=== PATIENT | female | born 2005 | race Caucasian/White ===

== ENCOUNTER 2024-08-07 19:50 | Emergency (ER) | payer MEDICAID ==
[~2024-08-07] VITALS: Ht 152.4 cm; Wt 56.0 kg
[2024-08-07 21:21] VITALS: TEMP 98.2; O2SAT 100
[2024-08-07] MEDS ORDERED: KETOROLAC 30MG/ML VIAL IM ONE (21:45)
[2024-08-07 22:04] LABS: CHLORIDE 105 mEq/L (98-107); POTASSIUM 4.9 mEq/L (3.5-5.1); SODIUM 137 mEq/L (136-145)
[2024-08-07 22:05] LABS: CALCIUM 9.7 mg/dL (8.7-10.4); CARBON DIOXIDE 26 mEq/L (21-32)
[2024-08-07 22:10] LABS: CREATININE 0.6 mg/dL (0.6-1.0); GLUCOSE 97 mg/dL (70-105); UREA NITROGEN BLOOD 8 mg/dL (9-23)
[2024-08-07 22:12] LABS: ALANINE AMINOTRANSFERASE 20 IU/L (10-49); ALBUMIN 4.7 g/dL (3.2-4.8); ASPARTATE AMINOTRANSFERASE 32 IU/L (<34); BILIRUBIN DIRECT 0.1 mg/dL (<=3.0); BILIRUBIN TOTAL 0.5 mg/dL (0.1-1.0); PROTEIN TOTAL 7.3 g/dL (6.0-8.3)
[2024-08-07 22:58] LABS: B-HCG QUANTITATIVE < 1 mIU/mL (<3)
[2024-08-07 23:38] VITALS: BP 111/76; PULSE 72; RESP 16
[2024-08-07] MEDS: KETOROLAC 30MG/ML VIAL IM NR (23:38)
[2024-08-07 23:43] LABS: BASOPHILS % 0.3 % (0.0-2.0); EOSINOPHILS % 0.8 % (0.0-5.0); HEMOGLOBIN. 12.9 g/dL (12.0-16.0); LYMPHOCYTES % 36.4 % (20.0-50.0); MEAN CORPUSCULAR HEMOGLOBIN 30.2 pg (28.0-32.0); MEAN CORPUSCULAR HGB CONC 33.9 g/dL (31.0-37.0); MEAN CORPUSCULAR VOLUME 88.9 fL (81.0-99.0); MONOCYTES % 5.7 % (2.0-8.0); NEUTROPHILS % 56.8 % (40.0-76.0); PLATELET 299 x1000/uL (130-400); RED BLOOD CELL COUNT 4.27 mill/uL (4.2-5.4); RED CELL DISTRIBUTION WIDTH 13.5 % (11.6-14.6); WHITE BLOOD COUNT 9.7 x1000/uL (4.5-11.0)
[2024-08-07] MEDS ORDERED: IBUP-2029 MT (23:58)
[2024-08-08 00:15] LABS: CLARITY URINE CLEAR (CLEAR); COLOR URINE RED (YELLOW); GLUCOSE URINE NEGATIVE (NEGATIVE); KETONES URINE NEGATIVE (NEGATIVE); LEUKOCYTE ESTERASE URINE 1+ (NEGATIVE); NITRITE URINE NEGATIVE (NEGATIVE); OCCULT BLOOD URINE 3+ (NEGATIVE); PROTEIN URINE 2+ (NEGATIVE); SPECIFIC GRAVITY URINE 1.011 (1.005-1.030); UROBILINOGEN URINE 0.2 E.U./dL (0.2-1.0)
[2024-08-08 00:19] LABS: UCG SCREEN NEGATIVE
[2024-08-08 00:40] LABS: SQUAMOUS EPITHELIAL CELL URINE 1+ /lpf (RARE/1+)
[2024-08-08 00:41] LABS: RBC URINE 25-50 /hpf (0-2)
[2024-08-08 00:43] LABS: BACTERIA URINE TRACE
[2024-08-08] MEDS ORDERED: NITR-87 MT (00:53)
== END 2024-08-08 01:11 | disposition home or self-care (01) ==
LOC: ER 19:50
DX: N92.0 Excessive and frequent menstruation with regular cycle (principal); R10.2 Pelvic and perineal pain; R82.71 Bacteriuria
CPT/HCPCS: 99285; 76830; 76856; 80076; 80048; 81003; 81025; 84702; 85025; 86850; 86900; 86901; 36415; 96372; J1885